=== PATIENT | female | born 1955 | race African-American/Black ===

== ENCOUNTER 2016-10-27 12:47 | Outpatient (CLI) | payer OTHER ==
[~2016-10-27 12:47] MED LIST: BENAZEPRIL HCL40 MG ORAL; IBUPROFEN800 MG ORAL; SIMVASTATIN10 MG ORAL; VERAPAMIL ER240 MG ORAL
[2016-10-27 13:17] VITALS: BP 125/80
[2016-10-27] MEDS ORDERED: ASPIRIN EC81 MG ORAL (13:18)
--- NOTE | 2016-10-27 15:04 | GI Initial Consult Note ---
History of Present Illness General Date patient seen: Oct 27, 2016 Time patient seen: 14:53 Referring physician: DAVID Reason for Consultation: SCREENING COLONOSCOPY Present Illness HPI 60 year old female patient referred by Dr. Sánchez for routine colonoscopy screening. Past last colonoscopy was done in 2009. She presents today with c/ o of occasional abdominal pain, constipation, and nausea without vomiting. Denies any weight loss or changes in dietary habits. Home Meds Reported Medications Aspirin Ec* (ASPIRIN EC*) 81 Mg Tablet.dr, 81 MG ORAL DAILY, TAB 10/27/16 Benazepril Hcl* (BENAZEPRIL HCL*) 40 Mg Tablet, 40 MG ORAL BID, TAB 11/24/13 Verapamil Hcl* (CALAN SR*) 240 Mg Tablet.er, 240 MG ORAL DAILY, #30 CAP 0 Refills 11/24/13 Discontinued Reported Medications Ibuprofen* (MOTRIN*) 800 Mg Tablet, 800 MG ORAL FOUR TIMES A DAY, #30 TAB 0 Refills 11/24/13 Simvastatin (ZOCOR) 10 Mg Tablet, 10 MG ORAL BEDTIME, TAB 11/24/13 Med list reviewed/reconciled: Yes Allergies: Coded Allergies: PENICILLINS (Verified Allergy, Severe, 11/24/13) skin rash Uncoded Allergies: IODINE IV (Allergy, Severe, 11/24/13) STOP BREATHING AND SKIN FEELS LIKE BURNING AND TURNS RED Patient History History Provided By: Patient PMH Narrative Bladder CA, 1999 HTN Blood tranfusion 30 years ago PSHx Bladder tumor removal fistula removal Family History Narrative Mother >> DM, , breast CA Social History: Reports: smoking Review of Systems All Other Systems: negative except mentioned in HPI Physical Exam Vital Signs Date Time Temp Pulse Resp B/P Pulse Ox O2 Delivery O2 Flow Rate FiO2 10/27/16 13:17 98.4 86 16 125/80 100 Sp02 EP Interpretation: reviewed General Appearance: well appearing, no apparent distress, alert Head: normocephalic EENT: normal ENT inspection Neck: supple Respiratory: normal breath sounds, no respiratory distress Cardiovascular: normal rate Gastrointestinal: normal inspection, non tender, soft Rectal: deferred Genitourinary: normal inspection Musculoskeletal: normal inspection, back normal Neurologic: normal inspection, alert, oriented x3, responsive Psychiatric: normal inspection, judgement/insight normal, memory normal Skin: normal inspection, normal color, no rash, warm/dry Lymphatic: normal inspection, no adenopathy GI: Plan Problems: (1) Bladder cancer (2) HTN (hypertension) (3) History of blood transfusion Plan colonoscopy to be scheduled pending prior authorization - CLD & Prep instructions prior day procedure given and acknowledged by patient. Seen with Dr. Woodruff. Thank you for referring this patient. Lesly Stanton N.P. Oct 27, 2016 15:04
== END 2016-10-27 13:30 | disposition home or self-care (01) ==
LOC: PAN 12:47
DX: I10 Essential (primary) hypertension (principal); C67.9 Malignant neoplasm of bladder, unspecified; Z79.82 Long term (current) use of aspirin; F17.200 Nicotine dependence, unspecified, uncomplicated; Z80.3 Family history of malignant neoplasm of breast; K59.00 Constipation, unspecified; R11.0 Nausea; Z91.041 Radiographic dye allergy status; Z88.0 Allergy status to penicillin
CPT/HCPCS: 99201

== ENCOUNTER 2016-11-28 06:48 | Day surgery (SDC) | payer OTHER ==
[2016-11-28] VITALS (11 sets, daily range): BP systolic 117–155; BP diastolic 73–88
[~2016-11-28] VITALS: Ht 160 cm; Wt 92.5 kg
--- NOTE | 2016-11-28 06:28 | Anethesia Preoperative Eval ---
Anesthesia Pre-op PMH/ROS General Date of Evaluation: Nov 28, 2016 Time of Evaluation: 06:26 Anesthesiologist: chivo ASA Score: ASA 3 Mallampati Score Class I : Soft palate, uvula, fauces, pillars visible Class II: Soft palate, uvula, fauces visible Class III: Soft palate, base of uvula visible Class IV: Only hard plate visible Mallampati Classification: Class III Surgeon: lorena Diagnosis: anemia Surgical Procedure: colonoscopy Anesthesia History: none Social History: current smoker, alcohol use Family History: no anesthesia problems Allergies: Coded Allergies: PENICILLINS (Verified Allergy, Severe, 11/24/13) skin rash Uncoded Allergies: IODINE IV (Allergy, Severe, 11/24/13) STOP BREATHING AND SKIN FEELS LIKE BURNING AND TURNS RED Medications: see eMAR Past Medical History Cardiovascular: Reports: HTN Gastrointestinal/Genitourinary: Reports: other - c/s, renal cancer Neurologic/Psychiatric: Reports: other - vertigo, paredes Hematology/Immune: Reports: anemia Musculoskeletal/Integumentary: Reports: OA, other - back pain PSxH Narrative: tonsillectomy, kidney sx Anesthesia Pre-op Phys. Exam Physician Exam Constitutional: NAD Neurologic: CN 2-12 intact Cardiovascular: RRR Respiratory: CTA Gastrointestinal: S/NT/ND Airway Exam Mallampati Score: Class II MO: full Neck: supple TMD: 2fb ROM: full Teeth: intact Anesthesia Pre-op A/P Studies Pre-op Studies: EKG - nsr Risk Assessment & Plan Assessment: asa3 Plan: mac Status Change Before Surgery: No Pre-Antibiotics Drug: CIERRA Mckeon Nov 28, 2016 06:28
[~2016-11-28 06:48] MED LIST changes: +ASPIRIN EC81 MG ORAL
[2016-11-28] MEDS ORDERED: IBUPROFEN600 MG ORAL (07:22)
[2016-11-28] MEDS ORDERED: SIMVASTATIN20 MG ORAL (07:22)
[2016-11-28] MEDS ORDERED: Lidocaine 1% MPF 10mg/ml 5ml ONE (09:00)
[2016-11-28] MEDS ORDERED: NS 550ML IV ONE (09:00)
[2016-11-28] MEDS ORDERED: Propofol 10mg/ml 20ml IV ONE (09:00)
--- NOTE | 2016-11-28 09:03 | Pre-Procedure Note/Attestation ---
Pre-Procedure Note/Attestation Complete Prior to Procedure Planned Procedure: not applicable Procedure Narrative: colonoscopy Indications for Procedure Pre-Operative Diagnosis: screening Attestation I attest that I discussed the nature of the procedure; its benefits; risks and complications; and alternatives (and the risks and benefits of such alternatives ), prior to the procedure, with the patient (or the patient's legal sales representative facility services). I attest that, if there was a reasonable possibility of needing a blood transfusion, the patient (or the patient's legal sales representative facility services) was given the [facility] standardized written summary, pursuant to the [place] Blood Safety Act ([place] Health and Safety Code # 1645, as amended). I attest that I re-evaluated the patient just prior to the surgery and that there has been no change in the patient's H&P, except as documented below: JAROD COHEN Nov 28, 2016 09:03
--- NOTE | 2016-11-28 09:04 | Short Stay Surgery H&P ---
History of Present Illness History of Present Illness Chief Complaint see full recent consult note HPI Oumou Walden is a 61 year old female who was admitted on for Colon Screening Patient History Allergies: Coded Allergies: PENICILLINS (Verified Allergy, Severe, 11/24/13) skin rash Uncoded Allergies: IODINE IV (Allergy, Severe, 11/24/13) STOP BREATHING AND SKIN FEELS LIKE BURNING AND TURNS RED PAST MEDICAL HISTORY: Past Surgeries: Social History: Medication History Scheduled Aspirin Ec* (Aspirin Ec*), 81 MG ORAL DAILY, (Reported) Benazepril Hcl* (Benazepril Hcl*), 40 MG ORAL BID, (Reported) Simvastatin (Zocor), 20 MG ORAL BEDTIME, (Reported) Verapamil Hcl* (Calan Sr*), 240 MG ORAL DAILY, (Reported) Scheduled PRN Ibuprofen* (Motrin*), 800 MG ORAL PRN PRN for For Pain, (Reported) Physical Exam Vital Signs Last Vital Signs Date Time Temp Pulse Resp B/P Pulse Ox O2 Delivery O2 Flow Rate FiO2 11/28/16 07:18 97.3 83 18 123/76 99 Room Air Plan Attestation Are the patient's medical conditions optimized for surgery? JAROD COHEN Nov 28, 2016 09:04
--- NOTE | 2016-11-28 09:41 | Endoscopy Procedure Note ---
Endoscopy Procedure Note Indication for Procedure: screening colon Procedures Performed: colonoscopy Operative Findings/Diagnosis: 11 polyps Specimen: yes Pt Tolerated Procedure Well: Yes Estimated Blood Loss: none Anesthesiologist: chivo Anesthesia: MAC Implant(s) used?: No 50 yrs or older w/o bx or poly: No 10yrs. F/U not recommended: Yes If not recommended, why?: Above average risk 10 yrs. F/U needed: Yes 18 years or older w/prev. colo: Yes <3yrs. since last colonoscopy: No JAROD COHEN Nov 28, 2016 09:41
[2016-11-28] MEDS ORDERED: Midazolam 2mg/2ml Inj IVP PRN (09:45)
[2016-11-28] MEDS ORDERED: DiphenhydrAMINE 50mg/ml Inj IVP PRN (09:45)
[2016-11-28] MEDS ORDERED: Hydromorphone 0.5mg/0.5ml inj IVP PRN (09:45)
[2016-11-28] MEDS ORDERED: Atropine Inj 1mg/10ml Syr IV PRN (09:45)
--- NOTE | 2016-11-28 09:58 | Immediate Post-Op Evaluation ---
Immediate Post-Op Evalulation Immediate Post-Op Evalulation Procedure: colonoscopy Date of Evaluation: Nov 28, 2016 Time of Evaluation: 09:57 IV Fluids: 550ml 0.9ns Blood Products: none Estimated Blood Loss: negligible Blood Pressure Systolic: 132 Blood Pressure Diastolic: 81 Pulse Rate: 72 Respiratory Rate: 18 O2 Sat by Pulse Oximetry: 99 Temperature (Fahrenheit): 97.0 Pain Score (1-10): 0 Nausea: No Vomiting: No Complications none Patient Status: awake, reacts, patent Hydration Status: adequate Drug: CIERRA Mckeon Nov 28, 2016 09:58
--- NOTE | 2016-11-28 21:00 | Procedure Note ---
DATE OF PROCEDURE: 11/28/2016 SURGEON: Edy Woodruff M.D. PROCEDURE: Colonoscopy with biopsy. ANESTHESIOLOGIST: Stephanie Delgado M.D. INSTRUMENT: Olympus adult flexible endoscope and colonoscope INDICATION: Screening colonoscopy evaluation. The procedure, risks, benefits, and possible consequences, including hemorrhage, aspiration, perforation and infection, and alternative treatments, were explained to the patient/legal guardian by Dr. Edy Woodruff and the patient/legal guardian understood and accepted these risks. PROCEDURE: After informed consent was obtained and the patient was adequately sedated, first rectal exam was performed, which was positive for internal hemorrhoids. Then, the scope was advanced from rectum into the cecum, documented by appendiceal orifice, ileocecal valve, and upper quadrant palpation. Quality of prep was overall good except for right colon and in the area of the ascending colon. There was some stool in that area, made the examination of the ascending colon limited. The patient had diffuse diverticulosis throughout the colon. The patient had total of 11 polyps removed, all of them diminutive polyps, removed with cold biopsy forceps technique, 1 in the descending, 8 in the sigmoid, and 2 in the rectum, so total of 11 polyps were removed. Retroflexion of the rectum showed evidence of internal hemorrhoids. SUMMARY OF FINDINGS: 1. Diverticulosis. 2. Internal hemorrhoids. 3. Total of 11 polyps removed. RECOMMENDATIONS: Follow up biopsies and treat accordingly. We will recommend repeat colonoscopy at least in 3 years. Edy Woodruff M.D. DR: PACO JOB#: [id number] CC:
== END 2016-11-28 11:15 | disposition home or self-care (01) ==
LOC: GAS 06:48
DX: Z12.11 Encounter for screening for malignant neoplasm of colon (principal); D12.4 Benign neoplasm of descending colon; D12.5 Benign neoplasm of sigmoid colon; K62.1 Rectal polyp; K64.8 Other hemorrhoids; K57.30 Diverticulosis of large intestine without perforation or abscess without bleeding; I10 Essential (primary) hypertension; R42 Dizziness and giddiness; D64.9 Anemia, unspecified; M19.90 Unspecified osteoarthritis, unspecified site; M54.9 Dorsalgia, unspecified; Z85.53 Personal history of malignant neoplasm of renal pelvis; Z88.0 Allergy status to penicillin; Z91.041 Radiographic dye allergy status; Z79.82 Long term (current) use of aspirin; Z79.899 Other long term (current) drug therapy
CPT/HCPCS: 45380; 93005; J1170; J2704; J7040; 94003; 94150

== ENCOUNTER 2016-12-29 12:54 | Outpatient (CLI) | payer OTHER ==
[~2016-12-29 12:54] MED LIST changes: +IBUPROFEN600 MG ORAL; +SIMVASTATIN20 MG ORAL
--- NOTE | 2016-12-29 14:51 | GI Progress Note ---
Assessment/Plan Problems: (1) Colon polyps ICD Codes: K63.5 - Polyp of colon SNOMED: 22762902 (2) Diverticulosis ICD Codes: K57.90 - Diverticulosis of intestine, part unspecified, without perforation or abscess without bleeding SNOMED: 464072529 (3) Bleeding hemorrhoid ICD Codes: K64.9 - Unspecified hemorrhoids SNOMED: 78897688 Status: stable Status Narrative Seen with Dr. Woodruff. Assessment/Plan SUMMARY OF FINDINGS reviewed with patient: 1. Diverticulosis. 2. Internal hemorrhoids. 3. Total of 11 polyps removed. RECOMMENDATIONS: Follow up biopsies and treat accordingly. >> negative for HP and malignancy recommended OTC miralax, colace and high fiber diet RTC x 6 months/prn if constipation still persists repeat colonoscopy x 3 years Subjective Subjective occasional constipation Objective T 98.4 BP 118/71 P 90 95 RA General Appearance: no apparent distress, alert Cardiovascular: normal rate Respiratory/Chest: normal breath sounds, no respiratory distress Abdominal Exam: normal bowel sounds, non tender, soft Extremities: normal range of motion, non-tender Lesly Stanton N.P. Dec 29, 2016 14:51
[2016-12-29 15:05] VITALS: BP 118/71
== END 2016-12-29 13:45 | disposition home or self-care (01) ==
LOC: PAN 12:54
DX: K63.5 Polyp of colon (principal); K57.90 Diverticulosis of intestine, part unspecified, without perforation or abscess without bleeding; K64.9 Unspecified hemorrhoids; K59.00 Constipation, unspecified
CPT/HCPCS: 99211

== ENCOUNTER 2017-10-26 13:30 | Outpatient (CLI) | payer OTHER ==
[2017-10-27 14:20] VITALS: BP 130/82
--- NOTE | 2017-10-28 15:36 | GI Progress Note ---
Assessment/Plan Problems: (1) Diverticulosis ICD Codes: K57.90 - Diverticulosis of intestine, part unspecified, without perforation or abscess without bleeding SNOMED: 857159523 (2) History of blood transfusion ICD Codes: Z92.89 - Personal history of other medical treatment SNOMED: 752135622 (3) Bleeding hemorrhoid ICD Codes: K64.9 - Unspecified hemorrhoids SNOMED: 56195055 (4) Colon polyps ICD Codes: K63.5 - Polyp of colon SNOMED: 93056255 (5) Bladder cancer ICD Codes: C67.9 - Malignant neoplasm of bladder, unspecified SNOMED: 835814727 Status: stable Status Narrative Seen with Dr. Woodruff. Assessment/Plan recent admission to [place] for rectal bleeding, CT revealed diverticulosis symptomatic treatment anusol prn RTC prn repeat colonoscopy 2020 The patient was seen and examined at bedside and all new and available data was reviewed in the patients chart. I agree with the above findings, impression and plan. (Patient seen earlier today. Signature stamp does not reflect patient encounter time.). - Edy Woodruff MD Subjective Subjective abdominal pain diarrhea, liquid has become slightly more solid rectal bleeding has stopped Objective T 98.6 BP 130/82 P 102 WT 211 General Appearance: WD/WN, no apparent distress, alert Cardiovascular: normal rate Respiratory/Chest: normal breath sounds, no respiratory distress Abdominal Exam: normal bowel sounds, non tender, soft Extremities: normal range of motion, non-tender Drew Stanton NP Oct 28, 2017 15:36
== END 2017-10-26 14:02 | disposition home or self-care (01) ==
LOC: PAN 13:30
DX: K57.90 Diverticulosis of intestine, part unspecified, without perforation or abscess without bleeding (principal); Z92.89 Personal history of other medical treatment; K64.9 Unspecified hemorrhoids; K63.5 Polyp of colon; C67.9 Malignant neoplasm of bladder, unspecified